=== PATIENT | female | born 1975 | race Caucasian/White ===

== ENCOUNTER 2017-05-27 22:35 | Emergency (ER) | payer MEDICAID, OTHER, SELFPAY ==
[~2017-05-27] VITALS: Ht 170.2 cm; Wt 64.0 kg
[2017-05-27] MEDS ORDERED: ALBUTEROL/IPRATROPIUM 2.5MG/0.5MG, 3 ML NPPB PRN (23:30)
[2017-05-27] MEDS ORDERED: ALBUTEROL/IPRATROPIUM 2.5MG/0.5MG, 3 ML NPPB ONE (23:30)
[2017-05-27] MEDS ORDERED: IBUPROFEN 200 MG TABLET PO ONE (23:30)
[2017-05-27] MEDS ORDERED: ALBUTEROL/IPRATROPIUM 2.5MG/0.5MG, 3 ML ONE (23:41)
[2017-05-27] MEDS ORDERED: IBUPROFEN 200 MG TABLET ONE (23:45)
[2017-05-28 00:03] VITALS: BP 93/75
== END 2017-05-28 00:27 | disposition home or self-care (01) ==
LOC: ED 23:59
DX: J20.9 Acute bronchitis, unspecified (principal); F11.10 Opioid abuse, uncomplicated; Z90.49 Acquired absence of other specified parts of digestive tract
CPT/HCPCS: 71020; 93005; 94640; 99284; J7512; J7620

== ENCOUNTER 2021-02-15 13:53 | Emergency (ER) | payer MEDICAID ==
[~2021-02-15] VITALS: Ht 170.2 cm; Wt 69.5 kg
[2021-02-15 14:03] VITALS: BP 130/59
[2021-02-15 14:57] LABS: ALANINE AMINOTRANSFERASE 12 U/L (12-78); ALBUMIN 3.3 g/dL (3.4-5.0); ANION GAP 5 mmol/L (5-15); BASOPHILS % (AUTO) 1 % (0-1); CALCIUM 9.2 mg/dL (8.5-10.1); CHLORIDE 104 mmol/L (98-107); CREATININE 0.63 mg/dL (0.55-1.02); EOSINOPHILS % (AUTO) 2 % (1-7); LYMPHOCYTES % (AUTO) 27 % (22-44); MEAN CORPUSCULAR HEMOGLOBIN 29.5 pg (27.0-34.8); MEAN CORPUSCULAR HGB CONC 33.3 g/dL (32.4-35.8); MEAN PLATELET VOLUME 7.6 fL (7.4-10.4); MONOCYTES % (AUTO) 9 % (2-9); NEUTROPHILS % (AUTO) 62 % (42-75); PLATELET COUNT 432 x10^3/uL (130-400); RED BLOOD COUNT 4.25 x10^6/uL (3.82-5.3); RED CELL DISTRIBUTION WIDTH 13.4 % (9.6-15.2)
[2021-02-15 15:00] LABS: ALKALINE PHOSPHATASE 108 U/L (45-117); BILIRUBIN,TOTAL 0.4 mg/dL (0.2-1.0); TOTAL PROTEIN 8.7 g/dL (6.4-8.2)
--- NOTE | 2021-02-15 20:12 | NUR ---
NIL for room
--- NOTE | 2021-02-15 20:30 | NUR ---
NIL for room
--- NOTE | 2021-02-15 21:00 | NUR ---
NIL for room.
== END 2021-02-15 21:40 | disposition left against medical advice (07) ==
LOC: ED 14:00
DX: R31.9 Hematuria, unspecified (principal)
CPT/HCPCS: 36415; 74018; 76770; 80053; 85025; 99285